=== PATIENT | female | born 1945 ===

== ENCOUNTER 2025-05-03 08:27 | Outpatient (AMB) | payer MEDICARE, SELFPAY ==
--- OUTSIDE RECORDS SUMMARY | 2024-05-11 08:00 | XMS_ITS | Encounter Summary ---
Author Organization [facility] Address [address] [place] [address] Care Team Providers Care Welding Equipment Repairer Supervisor Name Role Phone Brianda Millan MD Primary Care Provider Encounter Details Date Type Department Care Team (Late Contact Info) Description 05/11/2024 8:00 AM EDT Hospital Encounter TH HISTORIC ENCOUNTERS EASTERN CONVERSION ONLY Brianda Millan MD 175 [facility] [address] [place] [address] Social History Tobacco Use Types Packs/Day Years Used Date Smoking Tobacco: Former Cigarettes Q uit: 07/28/1972 Smokeless Tobacco: Never Alcohol Use Standard Drinks/Week Comments Yes 0 (1 standard drink = 0.6 oz pur e alcohol) Interpersonal Safety Answer Date Record ed Physical Abuse Unrecognized value 02/21/2025 Verbal Abuse Unrecognized value 02/21/2025 Comments No Sex and Gender Information Value Date Recorded Sex Assigned at Female 06/23/2024 9:39 AM EST Legal Sex Female 9:52 AM EST Gender Identity Female 06/23/2024 9:39 AM EST Sexual Orientation Straight 02/21/2025 9: 20 AM EDT documented as of this encounter Plan of Treatment Upcoming Encounters Date Type Department Care Team (Late Contact Info) Description 06/16/2025 8:45 AM EST Consult Orthopedic Surgery - [place] [address] [facility] [address] [place] [address] Jake Reis, DPM 175 [facility] [address] [place] [address] 07/29/2025 8:15 AM EST Office Visit Internal Medicine - [place] [address] [place] [phone] Brianda Millan MD [address] [place] [phone] 04/07/2026 3:45 PM EDT Office Visit Pulmonology - [place] [address] [place] [phone] Marek Galdamez MD [address] [place] [phone] documented as of this encounter Goals Goal Patient Goal Type Associated Problems Recent Progress Patient-Stated? Author LTGs General Yes Saira Morris, PT Note: Hand Router Operator Goals increase bilateral hip flexion, extension, and abduction strength to >/= 4/5 for increase in stability and functional mobility - MET for hip flexion strength. NOT MET for hip extension and abduction decrease time taken to complete 5xSTS to </= 12 seconds to show decrease in falls risk and increased functional strength - NOT MET, patient with increased arthritic knee pain during testing at todays session increase score on NORMAN to >/= 30/56 to show decrease in falls risk - MET (39/56) pt will be able to complete 6MWT to show increase in endurance for community mobility - MET (850ft) Pt will be independent with HEP for stretching and strengthening to improve upon gains made in skilled therapy - MET documented as of this encounter Visit Diagnoses Not on filedocumented in this encounter Care Teams Welding Equipment Repairer Supervisor Relationship Specialty Start Date End Date Brianda Millan MD PCP - General Internal Medicine 05/05/13 05/21/24 documented as of this encounter
--- OUTSIDE RECORDS SUMMARY | 2025-05-02 07:41 | XMS_ITS | Encounter Summary ---
Author Organization [facility] Address [id number] [place] [phone] Care Team Providers Care Community Marketing Manager Name Role Phone Brianda Millan MD Primary Care Provider Reason for Referral * Imaging (Routine) - Authorized Specialty Diagnoses / Procedures Referred By Contac t Referred To Contact Radiology Diagnoses Gastroparesis Procedures NM Gastric Emptying Study Jamie Martin MD [address] [address] Phone: tel: fax: [facility] Nuclear Medicine [address] [place] [phone] Phone: tel: Referral ID Status Reason Start Date Expiration Date V isits Requested Visits Authorized [id number] Authorized 02/24/2025 02/24/2026 1 1 Reason for Visit * Imaging (Routine) - Authorized Specialty Diagnoses / Procedures Referred By Contac t Referred To Contact Radiology Diagnoses Gastroparesis Procedures NM Gastric Emptying Study Jamie Martin MD [address] [address] Phone: tel: fax: [facility] Nuclear Medicine [address] [place] [phone] Phone: tel: Referral ID Status Reason Start Date Expiration Date V isits Requested Visits Authorized [id number] Authorized 02/24/2025 02/24/2026 1 1 Encounter Details Date Type Department Care Team (Late st Contact Info) Description 05/02/2025 7:41 AM EDT Hospital Encounter [facility] Nuclear Medicine [address] [place] [phone] Gastroparesis Social History Tobacco Use Types Packs/Day Years [...] 8:45 AM EST Consult Orthopedic Surgery - [place] [id number] [phone] Jake Reis DPM [address] [phone] 07/29/2025 8:15 AM EST Office Visit Internal Medicine - [place] [address] [phone] Brianda Millan MD [address] [phone] 04/07/2026 3:45 PM EDT Office Visit Pulmonology [facility] [address] [phone] Marek Galdamez MD [address] [address] Pending Results Name Type Priority Associated Diagnoses Date /Time NM Gastric Emptying Study Imaging Routine Gastroparesis 05/02/2025 11:15 AM EDT Scheduled Orders Name Type Priority Associated Diagnoses Orde r Schedule NM Gastric Emptying Study Imaging Routine Gastroparesis Once for 1 Occurrences starting 05/02/2025 until 05/02/2025 documented as of this encounter Goals Goal Patient Goal Type Associated Problems Recent Progress Patient-Stated? Author LTGs General Yes Saira Morris, PT Note: [facility] Goals increase bilateral hip flexion, extension, and [...] increased arthritic knee pain during testing at [facility] session increase score on NORMAN to >/= 30/56 to show decrease in falls risk - MET (39/56) pt will be able to complete 6MWT to show increase in endurance for community mobility - MET (850ft) Pt will be independent with HEP for stretching and strengthening to improve upon gains made in skilled therapy - MET documented as of this encounter Visit Diagnoses Diagnosis Gastroparesis documented in this encounter Administered Medications Inactive Administered Medications - up to 3 most recent administrations Medication Order MAR Action Action Date Dose Rate Site TC-99M sulfur colloid radio-isotope injection 0.9 millicurie 0.9 millicurie, subcutaneous, Once in imaging, Starting on Fri05/02/25 at 0830, For 1 dose Given 05/02/2025 8:31 AM EDT 0.9 millicuries Other documented in this encounter Orders Medications Ordered That Shaq ht Not Have Been Administered Count Last Ordered Date First Ordered Date TC-99M sulfur colloid radio- isotope injection 0.9 millicurie 1 05/02/2025 documented in this encounter Additional Health Concerns Assessment Noted Time PHQ-9 Depression Total Score: 2 09/21/19 9:06 AM EST A fall risk assessment has been complete d for the patient 09/21/2024 9:03 AM EST documented as of this encounter Care Teams Community Marketing Manager Relationship Specialty Start Date End Date Brianda Millan MD [address] [place] [address] [address] [place] [phone] PCP - General Internal Medicine 05/22/24 documented as of this encounter
--- NOTE | 2025-05-03 08:46 | A.OFFVIS_ITS ---
Intake Visit Reasons: 6m f/u Accompanied by: Spouse Allergies metoclopramide (From Reglan) Allergy (Unknown, Verified 05/03/25 08:55) Unknown NSAIDS (Non-Steroidal Anti-Inflamma Allergy (Unknown, Verified 05/03/25 08:55) Unknown Medication List - Last Reconciled 05/03/[address], NAIDA duloxetine 60 mg PO DAILY ergocalciferol (vitamin D2) 1,250 mcg PO QWEEK fremanezumab-vfrm (Ajovy) 225 mg subcut QMONTH gabapentin 100 mg PO BEDTIME 30 days losartan 50 mg PO DAILY pantoprazole 40 mg PO BID primidone 12.5 mg PO DAILY promethazine 12.5 mg PO TID sumatriptan succinate mg PO trazodone 50 mg PO BEDTIME HPI Comments Details: She was doing okay. Migraines were still happening about 2-3x/week. Taking Ajovy monthly. Using sumatriptan as needed which helps some as rizatriptan was on backorder. Walking with walker, no recent falls. Tremors stable. Previously was not taking Ajovy as prescribed, but was taking it every other fri. Getting migraines about 2-3/ wk. Her brain MRI was normal for age. She has been under the care of Dr. Paul and Dr. Hernández being treated for migraines with rizatriptan when necessary, mild essential tremor treated with primidone, and chronic pain for which she takes the Loxitane. She's had a balance problem for a few years and has used a walker. She fell down the stairs on 01/29/24 and was in rehabilitation for period of time, but is back home. She goes up and down the stairs holding onto the banister of and uses a cane upstairs and a walker when she goes out. 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 She was on Aimovig injections, but were stopped around 03/2024 as the co-pay went up from $45/month to $170 and cannot afford it. Review of Systems Const Denies chills, Denies daytime sleepiness, Denies difficulty sleeping, Denies fatigue, Denies fever(s), Denies frequent falls, Reports headache(s), Denies increased appetite, Denies poor appetite, Denies snoring, Denies weakness, Denies weight gain and Denies weight loss Eyes Denies loss of vision ENT Denies vertigo, Denies dizziness, Reports headache(s) and Reports neck pain Card Denies chest pain at rest, Denies chest pain with activity, Denies syncope, Denies leg edema, Denies palpitations, Denies dyspnea and Denies dyspnea on exertion Resp Denies cough, Denies dyspnea, Denies dyspnea on exertion and Denies snoring GI Denies abdominal pain, Denies constipation, Denies heartburn, Denies diarrhea and Denies nausea Denies urinary frequency, Denies urinary incontinence and Denies urinary urgency Musc Reports abnormal gait (balance difficulty), Reports back pain, Reports myalgias, Reports arthralgias, Reports neck pain, Denies numbness and Denies tingling Neuro Reports abnormal gait (balance difficulty), Denies vertigo, Denies dizziness, Denies syncope, Denies frequent falls, Reports headache(s), Denies lack of coordination, Denies loss of vision, Denies memory loss, Denies numbness, Denies Other visual disturbances, Denies restless legs, Denies seizure-like activity, Denies tingling, Denies paresthesias, Reports tremor(s) and Denies weakness Psych Denies anxiety, Denies depression, Denies auditory hallucinations, Denies memory loss and Denies visual hallucinations Endo Denies fatigue and Denies palpitations Physical Exam Const Other: General Appearance:? normal, in no acute distress. Heart:? S1, S2 normal, no murmurs. Lungs:? clear anteriorly and posteriorly. Musculoskeletal:? normal. Extremities:? no edema. Psych:? alert, oriented, cognitive function intact, cooperative with exam. Neuro Other: Abnormal Neurological Findings:?Hard of hearing. Walks with walker. Weakness of shoulder abduction, R > L. Mental Status: alert and oriented X 3. Normal attention, orientation, memory, and affect. Cranial Nerves: Pupils are equal, round, and reactive to light. External ocular muscles are intact. Visual mao are full, no ptosis. Face is symmetrical, no facial weakness or droop. Facial sensations are normal. Tongue protrudes in midline. Palate elevates symmetrically. Shoulder shrugging is normal Motor Examination: As above. Sensory Exam: Normal light touch, temperature, pinprick, vibration, and joint- position sensations. Rhomberg sign is absent. Coordination: No ataxia. No titubation. Gait Exam: With walker. Cerebellar Signs: [id number] is okay. Extrapyramidal System: No tremor, rigidity with normal facial expressions. No bradykinesia. No bradyphrenia. Normal arm swing and posture. No propulsion or retropulsion. Speech: Normal. Assessment & Plan Assessment & Plan (1) Migraine: Code(s): G43.909 - Migraine, unspecified, not intractable, without status migrainosus Category: Medical Qualifiers: Intractability: not intractable Migraine type: unspecified Status migrainosus presence: without status migrainosus Qualified Code(s): G43.909 - Migraine, unspecified, not intractable, without status migrainosus Plan: Continue Ajovy Solution Auto-Injector 225mg/1.5mL subcutaneous monthly Continue sumatriptan 50mg 1 tablet as needed for migraine (2) Ataxia: Code(s): R27.0 - Ataxia, unspecified Category: Medical (3) Benign essential tremor: Code(s): G25.0 - Essential tremor Category: Medical Plan: Continue primidone 50mg 1/4 tablet at bedtime. Continue gabapentin 100mg 1 capsule at bedtime. Plan . Medications: New fremanezumab-vfrm (Ajovy) 225 mg (1.5 mL) subcut QMONTH 1 ea 5RF 30 days Coding Level of Care Code Est Pt Level 4 (76247) Diagnoses Migraine without status migrainosus, not intractable, unspecified migraine type G43.909 Intractability: not intractable Migraine type: unspecified Status migrainosus presence: without status migrainosus Ataxia R27.0 Benign essential tremor G25.0
--- OUTSIDE RECORDS SUMMARY | 2025-05-03 08:57 | XMS_ITS | Clinical Summary ---
Author Organization [facility] Address [address] [place] [address] Phone Care Team Providers Care Player Manager Name Role Phone Brianda Millan MD Primary Care Provider [phone] Allergies Active Allergy Reactions Criticality Noted Date Comments Lisinopril 10/29/2024 Metoclopramide Hcl 01/19/2021 Reglan Nsaids (Non-Steroidal Anti-Inflammatory Drug) 03/01/2015 No reaction documented. Medications cyanocobalamin (VITAMIN B-12) 500 mcg tablet TAKE 1 TABLET BY MOUTH EVERY DAY 90 tablet 3 06/28/20 24 Active acetaminophen (TYLENOL) 500 mg tablet Take 1,000 mg by mouth every 6 hours as needed. Active erenumab-aooe (Aimovig Autoinjector) 70 mg/mL injection INJECT 1 MILLILITER SUBCUTANEOUSLY ONCE A MONTH IN THE ABDOMEN, THIGH, OR OUTER AREA OF UPPER ARM 10/26/19 22 Active albuterol 2.5 mg /3 mL (0.083 %) nebulizer solution Take 1 Vial by nebulization every 4 hours as needed for Wheezing. 05/23/20 23 Active albuterol HFA (PROAIR HFA ; PROVENTIL HFA ; VENTOLIN HFA) 90 mcg/actuation inhaler Inhale 2 Puffs into the lungs every 4 hours as needed for Wheezing or Shortness of Breath for up to 30 days. 05/23/20 23 Active ascorbic acid (VITAMIN C) 500 mg chewable tablet Ascorbic Acid (VITAMIN C) 500 MG tablet Take 500 mg by mouth daily. 05/11/20 13 Active calcium carbonate (TUMS) 500 mg (200 mg elemental calcium) chewable tablet Take 1 tablet by mouth 2 times daily. Active CHOLECALCIFEROL, VITAMIN D3, ORAL Take 1,000 Units by mouth daily. Active diclofenac (VOLTAREN) 1 % topical gel Apply 1 Dose topically 2 times daily. 10/24/19 Active doxycycline hyclate (VIBRA-TABS) 100 mg tablet 04/13/20 Active gabapentin (NEURONTIN) 100 mg capsule Take 1 capsule by mouth daily. Active methyl salicylate/mentho l (EXTRA STRENGTH MUSCLE RUB TOP) Menthol-Methyl Salicylate (MUSCLE RUB EX) Apply topically. prn Active multivit-min/iron /folic acid/K (ADULTS MULTIVITAMIN ORAL) Multiple Vitamins-Minerals (MULTIVITAMIN ADULT) Tab Take by mouth. Active omeprazole (PriLOSEC) [address] capsule Active predniSONE (DELTASONE) 20 mg tablet 2 tab for 3 days and then 1 tab daily 04/13/20 Active PRIMIDONE ORAL Take 25 mg by mouth 2 Times Daily. Active rizatriptan (MAXALT) 10 mg tablet TAKE 1 TABLET BY MOUTH ONCE, MAY REPEAT AT 2 HOUR INTERVALS (DO NOT EXCEED 3 TABLETS/24 HOURS) 10/03/19 Active sodium hyaluronate, viscosup, 10 mg/mL(mw 2.4 -3.6 million) syringe intra-articular injection Inject 20 mg into the articular space Once. 04/23/20 Active fluticasone-salme terol (Wixela Inhub) 250-50 mcg/dose diskus inhaler Inhale 1 puff by mouth 2 (two) times a day. Rinse mouth with water after use to reduce aftertaste and incidence of candidiasis. Do not swallow. 1 each 09/17/19 25 026 Active Additional Information Patient not taking.Reported on 04/04/2025 traZODone (DESYREL) 50 mg tablet TAKE 1 TABLET BY MOUTH EVERYDAY AT BEDTIME 90 tablet 2 10/05/19 25 Active alendronate (FOSAMAX) 70 mg tablet TAKE 1 TABLET BY MOUTH ONE TIME PER WEEK 12 tablet 1 12/22/19 25 Active promethazine (PHENERGAN) 12.5 mg tabletIndications :Nausea TAKE 1 TABLET BY MOUTH THREE TIMES A DAY 270 tablet 1 01/11/20 25 Active pantoprazole (PROTONIX) 40 mg EC tabletIndications :Gastroesophageal reflux disease without esophagitis TAKE 1 TABLET BY MOUTH TWICE A DAY 180 tablet 1 01/25/20 25 Active losartan (COZAAR) 50 mg tablet Take 1 tablet (50 mg total) by mouth 1 (one) time each day. 90 tablet 2 01/25/20 25 Active polyethylene glycol (Golytely) 236-22.74-6.74 -5.86 gram solution Take 4L by mouth once for one dose. May substitue any PEG. Starting at 2PM the day before your procedure drink 1 8oz glasses at your own pace until you complete half of the gallon. Finish 2nd half of the gallon at 8PM. 4000 mL 02/08/20 25 Active bisacodyL (DULCOLAX) 5 mg EC tablet Take 2 tablets by mouth right before beginning bowel prep. See instructions provided by the office 2 tablet 02/08/20 25 Active ergocalciferol (VITAMIN D-2) 1,250 mcg (50,000 unit) capsule Take 1 capsule (50,000 Units total) by mouth 1 (one) time per week. 12 capsule 1 02/22/20 25 Active DULoxetine (CYMBALTA) [address] capsuleIndication s:Unspecified asthma, uncomplicated TAKE 1 CAPSULE BY MOUTH EVERY DAY 90 capsule 1 03/14/20 25 Active Active Problems Problem Noted Date Diagnosed Date Gastritis 01/05/2025 Hypertension 01/05/2025 Arthritis of right glenohumeral joint 01/19/2021 PLMD (periodic limb movement disorder) Hypertension 01/12/2019 Lipoma of back 12/18/2018 Adenomatous polyp of transverse colon 04/14/2018 Osteoporosis 02/04/2018 Vitamin D deficiency 01/25/2018 Onychomycosis of toenail 12/23/2017 Hiatal hernia 08/21/2017 Assessment & Plan (10/29/2024 12:46 PM EDT): Reassessing with upper GI Patient already status post paraesophageal hernia repair Discussed potential need for repeat surgery Orders: Ambulatory referral to Gastroenterology XR UGI w Air Contrast; Future Vitamin B12 and folate; Future Lipase; Future Amylase; Future Ambulatory referral to Nutrition Services; Future Assessment & Plan (09/21/2024 11:05 AM EST): Orders: Ambulatory referral to Gastroenterology; Future Comprehensive metabolic panel; Future CBC and differential; Future Thyroid stimulating hormone with reflex to free t4 and free t3; Future Paroxysmal supraventricular tachycardia (CMS/HCC V24) 08/21/2017 Ventral hernia 08/21/2017 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 Bialey Insomnia 04/30/2017 Tubular adenoma of colon 04/30/2017 Overview (07/01/2024): 2016 s/p hemicolectomy Asthma 03/06/2017 Obstructive sleep apnea 03/06/2017 Overview (07/01/2024): [facility] Polysomnogram: Date 10/09/2020; Wt 161#; BMI 33; SE 48%; SM 73%; REM 6%; RDI 7 (AHI 7), REM (RDI 4 - AHI 4), Central apneas 0; Obstructive apneas 0; Mixed apneas 0; hypopneas 28; RERAs 0; average oxygen saturation 90% (lowest 80% - with saturations <88% for 5% or more of study); PLMs 56. - Obstructive Sleep Apnea - mild overall; all hypopneas; with sleep related hypoventilation by 2020 polysomnogram. Anemia 01/29/2017 Overview (07/01/2024): Comments: EGD and colonoscopy did not show a source of bleeding. On Iron replacement. Capsule endoscopy still an option Assessment & Plan (09/21/2024 11:05 AM EST): Orders: Comprehensive metabolic panel; Future CBC and differential; Future Thyroid stimulating hormone with reflex to free t4 and free t3; Future GERD (gastroesophageal reflux disease) 7 Assessment & Plan (10/29/2024 12:46 PM EDT): Stable continue pantoprazole 40 mg twice daily Nummular eczema 10/29/2016 Urinary incontinence 07/16/2016 DJD (degenerative joint disease) of knee 016 Overview (07/01/2024): And shoulder Ataxia 10/15/2013 Vitamin B12 deficiency 08/20/2013 Overview (07/01/2024): Comments: Rx started 28 january 2012 Encounters Date Type Department Care Team Description 05/02/2025 7:41 AM EDT Hospital Encounter [facility] Nuclear Medicine [address] [place] [phone] Gastroparesis 04/25/2025 Telephone Gastroenterology - [address] [facility] [address] [facility] [address] [place] [address] Alex Rashid PA 04/04/2025 3:15 PM EDT Office Visit Pulmonology - [place] 175 [facility] [address] [place] [phone] Marek Galdamez MD Chronic obstructive pulmonary disease, unspecified COPD type (CMS/HCC V24, CMS/HCC V28) (Primary Dx); KRAIG (obstructive sleep apnea) 03/29/2025 Telephone Internal Medicine [facility] [address] [phone] Brianda Millan MD 03/23/2025 Telephone Internal Medicine [facility] 175 [facility] [address] [place] [address] Brianda Millan MD 03/16/2025 Telephone Internal Medicine [facility] 175 [facility] [address] [place] [address] Brianda Millan MD 03/09/2025 Telephone Internal Medicine [facility] [address] [phone] Brianda Millan MD 02/25/2025 9:00 AM EDT Office Visit Internal Medicine [facility] 175 [facility] [address] [place] [phone] Brianda Millan MD Vitamin B12 deficiency (Primary Dx); Primary hypertension; Anemia, unspecified type; Mild intermittent asthma, unspecified whether complicated; Osteoporosis, unspecified osteoporosis type, unspecified pathological fracture presence 02/23/2025 Telephone Gastroenterology - [address] [facility] [address] [facility] [address] [place] [phone] Yamel Carrero MA 02/21/2025 10:25 AM EDT Anesthesia Event [facility] Endoscopy [address] [place] [phone] Teddy La DO 02/21/2025 9:25 AM EDT - 02/21/2025 11:59 PM EDT Hospital Encounter [facility] Endoscopy [address] [place] [phone] Jamie Martin MD Walsh, Michael, DO Sobo, Kathleen, CRNA Weight loss; Nausea; Abdominal pain Discharge Disposition: Home or Self Care from Last 3 Months Immunizations Immunization Administration Dates Next Due Influenza trivalent, 0.5mL ( Fluad) 65yo and older 09/21/2024,05/23/2023,06/07/2022,06/15,06/13/2020,06/11/2019 Influenza trivalent, 0.5mL, preservative free (Fluarix; FluLaval; Fluzone) ages 6mo and older (Afluria) 3 years and older 04/30/2017,06/12/2016,07/25/2014,08/20 Shijiebang SARS-CoV-2 COVID-19, mRNA, LNP-S, preservative free 11/03/2020,10/13/2020 Pneumococcal conjugate 13 va lent (Prevnar 13, PCV13) 2mo and older 04/30/2017 Pneumococcal polysaccharide 23 valent (Pneumovax 23) 2yo and older 06/07/2022 Surgical History Surgery Date Site/Laterality Comments OTHER SURGICAL HISTORY PROCEDURE: HISTORY OTHER; COMMENT: esophogastrostomy distal /3, thoracotomy COLONOSCOPY 7 PROCEDURE: HISTORICAL COLONOSCOPY; COMMENT: with polypecotmy & tatoo; tubular adenoma, diverticulosis and internal hermorrhoids OTHER SURGICAL HISTORY 7 PROCEDURE: SC COLECTOMY PARTIAL W/ANASTOMOSIS; COMMENT: converted to open w/anastomosis & mobilization of splenic flexure UPPER GASTROINTESTINAL ENDOSCOPY 7 PROCEDURE: UPPER GI ENDOSCOPY/EXAM; COMMENT: esophagogastroduodenscopy (with colonoscopy); negative exam HERNIA REPAIR 6 PROCEDURE: HISTORICAL HERNIA REPAIR/UMB; COMMENT: incisional w/Phasix mesh; adhesiolysis OTHER SURGICAL HISTORY 2013 PROCEDURE: HISTORY OTHER; COMMENT: robotic converted to open repair paraesophageal hernia LIPOMA RESECTION PROCEDURE: SKIN TISSUE EXCISION(LIPOMA); COMMENT: back TUBAL LIGATION 1974 PROCEDURE: HISTORICAL TUBAL LIGATION ABDOMINAL SURGERY 2012 PROCEDURE: HISTORICAL ABDOMINAL SURGERY; COMMENT: strangulated stomach COLONOSCOPY 02/25/2023 - 03/27/2023 20 mm lipoma in proximal ascending colon, internal hemorrhoids, sigmoid tics healthy appearing anastomosis in the sigmoid colon ESOPHAGOGASTRODUODENOSCOPY 02/25/2023 - 03/27/2023 medium sized hiatal hernia gastric mucosa with minimal chronic gastritis negative for H. pylori Medical History Medical History Date Comments Anemia 01/29/2017 DX:Anemia; COMME NT: Comments: EGD and colonoscopy did not show a source of bleeding. On Iron replacement. 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 Bailey Hiatal hernia 08/21/2017 DX:Hiatal hernia History of GI bleed 08/21/2017 DX:History o f GI bleed History of herpes zoster 08/21/2017 DX:Hist ory of herpes zoster History of pulmonary embolus (PE) 03/04/2016 DX:History of pulmonary embolus (PE); COMMENT: and DVT Insomnia 04/30/2017 DX:Insomnia Nummular eczema 10/29/2016 DX:Nummular ecze ma Obstructive sleep apnea syndrome 03/06/2017 DX:Obstructive sleep apnea syndrome Tubular adenoma of colon 04/30/2017 DX:Tubu lar adenoma of colon; COMMENT: 2016 s/p hemicolectomy Urinary incontinence 07/16/2016 DX:Urinary incontinence Ventral hernia 08/21/2017 DX:Ventral herni a Vitamin B 12 deficiency 08/20/2013 DX:Vitam in B 12 deficiency; COMMENT: Comments: Rx started 28 january 2012 DJD (degenerative joint dise ase) of knee 03/13/2016 DX:DJD (degenerative joint d isease) of knee; COMMENT: And shoulder GERD (gastroesophageal reflu x disease) 10/29/2016 DX:GERD (gastroesophageal re flux disease) Family History Medical History Relation Name Comments Other: Other, cerebral palsy Brother Emphysema Father Stomach cancer Mother widespread me tastasis Stomach cancer Uncle maternal (great uncle) Relation Name Status Comments Brother Father Mother Uncle maternal Alive Social History Tobacco Use Types Packs/Day Years Used Date Smoking Tobacco: Former Cigarettes Q uit: 07/28/1972 Smokeless Tobacco: Never Tobacco Cessation:Counseling Given: Not Answered Alcohol Use Standard Drinks/Week Comments Yes 0 [...] Orientation Straight 02/21/2025 9: 20 AM EDT Obstetrics History Para Term AB IAB SAB Ectopic Multiple Livin g Live Births 3 Last Filed Vital Signs Vital Sign Reading Time Taken Comments Blood Pressure 120/58 04/04/2025 3:13 PM EDT Pulse 60 04/04/2025 3:13 PM EDT Temperature 36.6 C (97.8 F) 04/04/2025 3:13 PM EDT Respiratory Rate 16 04/04/2025 3:13 PM EDT Oxygen Saturation 98% 04/04/2025 3:13 PM EDT Inhaled Oxygen Concentration - - Weight 44.6 kg (98 lb 6.4 oz) 02/25/2025 9:07 AM EDT Height 149.9 cm (4' 11 ) 02/25/2025 9:07 AM EDT Body Mass Index 19.87 02/25/2025 9:07 AM EDT Plan of Treatment Upcoming Encounters Date Type Department Care Team (Late st Contact Info) Description 06/16/2025 8:45 AM EST Consult Orthopedic Surgery - [place] [address] [facility] [address] [place] [phone] Jake Reis DPM [address] [phone] 07/29/2025 8:15 AM EST Office Visit Internal Medicine - [place] [facility] [address] [place] [phone] Brianda Millan MD [address] [phone] 04/07/2026 3:45 PM EDT Office Visit Pulmonology - [place] [facility] [address] [place] [phone] Marek Galdamez MD [address] [address] Health Maintenance Due Date Last Done Comments DTaP,Tdap,and Td Vaccines (1 - Tdap) 1966 Zoster Vaccines (1 of 2) 1997 RSV Immunization Adult Patients (1 - 1-dose 75+ series) 2022 Hepatitis C Screening 07/06/2022 Social Influencers of Health Screening 07/06/2022 COVID-19 Vaccine ( season) 2025 09/01/2021, 11/03/2020, 10/13/2020 Influenza Vaccine (#1) 2025 , 03/28/2024, 05/23/2023, Additional history exists Falls Risk Assessment 09/21/2025 09/21/2024, 025 Medicare Annual Wellness Visit 09/21/2025 09/21/2024 Hypertension/CHF/CAD Annual BMP Blood Test 09/24/2025 09/24/2024, 04/13/2024, 04/13/2024 Cholesterol Screening (Lipid Panel) 05/27/2028 05/27/2023 Osteoporosis Screening (Bone Density Screening) 04/27/2031 04/27/2021, 01/19/2018 Pneumococcal Vaccine: 50+ Years Completed 06/07/2022, 04/30/2017 Depression Screening Completed 09/21/2024 Colorectal Cancer Screening: Colonoscopy Discontinued 02/21/2025 HIB Vaccines Aged Out No longer eligi ble based on patient's age to complete this topic HPV Vaccines Aged Out No longer eligi ble based on patient's age to complete this topic Hepatitis A Vaccines Aged Out No long er eligible based on patient's age to complete this topic Hepatitis B Vaccines Aged Out No long er eligible based on patient's age to complete this topic IPV Vaccines Aged Out No longer eligi ble based on patient's age to complete this topic MMR Vaccines Aged Out No longer eligi ble based on patient's age to complete this topic Meningococcal ACWY Vaccine Aged Out N o longer eligible based on patient's age to complete this topic Meningococcal B Vaccine Aged Out No l onger eligible based on patient's age to complete this topic RSV Immunization Patients Under 20 months Aged Out No longer eligible based on patient's age to complete this topic Varicella Vaccines Aged Out No longer eligible based on patient's age to complete this topic Goals Goal Patient Goal Type Associated Problems Recent Progress Patient-Stated? 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, extension, and [...] gains made in skilled therapy - MET Procedures Procedure Name Priority Date/Time Associated Diagnosis Comments COLONOSCOPY Routine 02/21/2025 10:49 AM EDT Weight loss Nausea Abdominal pain EGD Routine 02/21/2025 10:49 AM EDT Weight loss Nausea Abdominal pain TISSUE EXAM Routine 02/21/2025 10:31 AM EDT Weight loss Nausea Abdominal pain COMPREHENSIVE METABOLIC PANEL Routine 09/24/2024 8:58 AM EST Chronic right shoulder pain Chronic pain of both knees Gastric atony Hiatal hernia Anemia, unspecified type LIPID PANEL Routine 05/27/2023 DXA BONE DENSITY STUDY 1+ SITS AXIAL SKEL Routine 04/27/2021 10:20 AM EDT Wedge compression fracture of unspecified lumbar vertebra, sequela from Last 3 Months or Most Recently Relevant to Health Maintenance Results * COLONOSCOPY Anesthesia - MAC; [facility] ENDOSCOPY (02/21/2025 10:49 AM EDT) Anatomical Region Laterality Modality Other 02/21/2025 10:2 3 AM EDT Impressions 02/21/2025 10:53 AM EDT - Patent end-to-side colo-colonic anastomosis, characterized by healthy appearing mucosa. - Medium-sized lipoma in the proximal ascending colon. - Diverticulosis in the sigmoid colon. - Non-bleeding internal hemorrhoids. - The examination was otherwise normal on direct and retroflexion views. - No specimens collected. Recommendation: - Discharge patient to home. - Resume previous diet. - Continue present medications. - Await pathology results. - Return to GI clinic as previously scheduled. Narrative 02/21/2025 10:53 AM EDT [facility] GI Patient Name: Shannon Wylie Procedure Date: 02/21/2025 10:23 AM Date of : 1945 Age: 79 Room: ROOM 14 Gender: Female Note Status: Finalized Attending MD: Jamie Martin MD, Procedure Date No Time: 02/21/2025 Procedure: Colonoscopy Indications: High risk colon cancer surveillance: Personal history of colonic polyps Providers: Jamie Martin MD Referring MD: Jamie Martin MD Medicines: Monitored Anesthesia Care Complications: No immediate complications. Estimated Blood Loss: Estimated blood loss: none. Procedure: Pre-Anesthesia Assessment: - ASA Grade Assessment: IV - A patient with severe systemic disease that is a constant threat to life. - After reviewing the risks and benefits, the patient was deemed in satisfactory condition to undergo the procedure. After I obtained informed consent, the scope was passed under direct vision. Throughout the procedure, the patient's blood pressure, pulse, and oxygen saturations were monitored continuously.The Colonoscope was introduced through the anus and advanced to the cecum, identified by appendiceal orifice and ileocecal valve. The colonoscopy was performed without difficulty. The patient tolerated the procedure well. The quality of the bowel preparation was adequate. Findings: There was evidence of a prior end-to-side colo-colonic anastomosis in the sigmoid colon. This was patent and was characterized by healthy appearing mucosa. There was a medium-sized lipoma, 13 mm in diameter, in the proximal ascending colon. Scattered small and large-mouthed diverticula were found in the sigmoid colon. Non-bleeding internal hemorrhoids were found during retroflexion. The hemorrhoids were small. The exam was otherwise without abnormality on direct and retroflexion views. Procedure Code(s): --- Professional --- G0105, Colorectal cancer screening; colonoscopy on individual at high risk Diagnosis Code(s): --- Professional --- Z86.010, Personal history of colonic polyps CPT copyright 2020 [employer]. All rights reserved. The codes documented in this report are preliminary and upon transplanter review may be revised to meet current compliance requirements. Jamie Martin MD 02/21/2025 10:53:44 AM This report has been signed electronically.Jamie Martin MD Number of Addenda: 0 Note Initiated On: 02/21/2025 10:23 AM Scope In: Scope Out: Endoscopy Department at [facility] - [address] [place] [phone] Procedure Note Jamie Martin MD - 02/21/2025 [facility] GI Patient Name: Shannon Wylie Procedure Date: 02/21/2025 10:23 AM Date of : 1945 Age: 79 Room: ROOM 14 Gender: Female Note Status: Finalized Attending MD: Jamie Martin MD, Procedure Date No Time: 02/21/2025 Procedure: Colonoscopy Indications: High risk colon cancer surveillance: Personalhistory of colonic polyps Providers: Jamie Martin MD Referring MD: Jamie Martin MD Medicines: Monitored Anesthesia Care Complications: No immediate complications. Estimated Blood Loss: Estimated blood loss: none. Procedure: Pre-Anesthesia Assessment: - ASA Grade Assessment: IV - A patient with severe systemic disease that is a constant threat tolife. - After reviewing the risks and benefits, thepatient was deemed in satisfactory condition to undergo the procedure. After I obtained informed consent, the scope was passed under direct vision. Throughout theprocedure, the patient's blood pressure, pulse, and oxygen saturations were monitored continuously.The Colonoscope was introduced through the anus and advanced to the cecum, identified by appendiceal orifice and ileocecal valve. The colonoscopy was performed without difficulty. The patient tolerated the procedure well. The quality of the bowel preparation was adequate. Findings: There was evidence of a prior bbm-te-ljyeppcw-colonic anastomosis in the sigmoid colon. This was patentand was characterized by healthy appearing mucosa. There was a medium-sized lipoma, 13 mm in diameter,in the proximal ascending colon. Scattered small and large-mouthed diverticula were found in the sigmoid colon. Non-bleeding internal hemorrhoids were found during retroflexion. The hemorrhoids were small. The exam was otherwise without abnormality ondirect and retroflexion views. Procedure Code(s): --- Professional --- G0105, Colorectal cancer screening; colonoscopy on individual at high risk Diagnosis Code(s): --- Professional --- Z86.010, Personal history of colonic polyps CPT copyright 2020 [employer]. All rights reserved. The codes documented in this report are preliminary and upon transplanter reviewmay be revised to meet current compliance requirements. Jamie Martin MD 02/21/2025 10:53:44 AM This report has been signed electronically.Jamie Martin MD Number of Addenda: 0 Note Initiated On: 02/21/2025 10:23 AM Scope In: Scope Out: Endoscopy Department at [facility] - [address] [place] [phone] IMPRESSION: - Patent end-to-side colo-colonic anastomosis, characterized by healthy appearing mucosa. - Medium-sized lipoma in the proximal ascendingcolon. - Diverticulosis in the sigmoid colon. - Non-bleeding internal hemorrhoids. - The examination was otherwise normal on directand retroflexion views. - No specimens collected. Recommendation: - Discharge patient to home. - Resume previous diet. - Continue present medications. - Await pathology results. - Return to GI clinic as previously scheduled. Jamie Martin MD GI~PROCEDURE ORDERABLES Final Result * EGD Anesthesia - MAC; [facility] ENDOSCOPY (02/21/2025 10:49 AM EDT) Anatomical Region Laterality Modality Other 02/21/2025 10:1 7 AM EDT Impressions 02/21/2025 10:52 AM EDT - Z-line variable, 30 cm from the incisors. - Congested, erythematous, friable (with contact bleeding), inflamed, ulcerated mucosa in the esophagus. Biopsied. - Congested, erythematous and friable (with contact bleeding) mucosa in the stomach. - Normal examined duodenum. Biopsied. - Several biopsies were obtained in the gastric antrum. Recommendation: - Perform a colonoscopy today. - Await pathology results. Narrative 02/21/2025 10:52 AM EDT [facility] GI Patient Name: Shannon Wylie Procedure Date: 02/21/2025 10:17 AM Date of : 1945 Age: 79 Room: ROOM 14 Gender: Female Note Status: Finalized Attending MD: Jamie Martin MD, Procedure Date No Time: 02/21/2025 Procedure: Upper GI endoscopy Indications: Epigastric abdominal pain, Gastro-esophageal reflux disease, Failure to respond to medical treatment, Weight loss Providers: Jamie Martin MD Referring MD: Jamie Martin MD Medicines: Monitored Anesthesia Care Complications: No immediate complications. Estimated Blood Loss: Estimated blood loss was minimal. Procedure: Pre-Anesthesia Assessment: - ASA Grade Assessment: IV - A patient with severe systemic disease that is a constant threat to life. - After reviewing the risks and benefits, the patient was deemed in satisfactory condition to undergo the procedure. After obtaining informed consent, the endoscope was passed under direct vision. Throughout the procedure, the patient's blood pressure, pulse, and oxygen saturations were monitored continuously.The Endoscope was introduced through the mouth, and advanced to the third part of duodenum. The upper GI endoscopy was accomplished without difficulty. The patient tolerated the procedure well. Findings: The Z-line was variable and was found 30 cm from the incisors. Segmental moderate mucosal changes characterized by congestion, erythema, friability (with contact bleeding), inflammation and ulceration were found in the distal esophagus. Biopsies were taken with a cold forceps for histology. Estimated blood loss was minimal. The exam of the esophagus was otherwise normal. Diffuse mild mucosal changes characterized by congestion, erythema and friability (with contact bleeding) were found in the entire examined stomach. Several biopsies were obtained in the gastric antrum with cold forceps for histology. Estimated blood loss was minimal. The examined duodenum was normal. Biopsies were taken with a cold forceps for histology. Estimated blood loss was minimal. Procedure Code(s): --- Professional --- 77765, Esophagogastroduodenoscopy, flexible, transoral; with biopsy, single or multiple Diagnosis Code(s): --- Professional --- R10.13, Epigastric pain K21.9, Gastro-esophageal reflux disease without esophagitis R63.4, Abnormal weight loss CPT copyright 2020 [employer]. All rights reserved. The codes documented in this report are preliminary and upon transplanter review may be revised to meet current compliance requirements. Jamie Martin MD 02/21/2025 10:51:44 AM This report has been signed electronically.Jamie Martin MD Number of Addenda: 0 Note Initiated On: 02/21/2025 10:17 AM Scope In: Scope Out: Endoscopy Department at [facility] - [address] [place] [id number] Procedure Note Jamie Martin MD - 02/21/2025 [facility] GI Patient Name: Shannon Wylie Procedure Date: 02/21/2025 10:17 AM Date of : 1945 Age: 79 Room: ROOM 14 Gender: Female Note Status: Finalized Attending MD: Jamie Martin MD, Procedure Date No Time: 02/21/2025 Procedure: Upper GI endoscopy Indications: Epigastric abdominal pain, Gastro-esophageal reflux disease, Failure to respond to medical treatment, Weight loss Providers: Jamie Martin MD Referring MD: Jamie Martin MD Medicines: Monitored Anesthesia Care Complications: No immediate complications. Estimated Blood Loss: Estimated blood loss was minimal. Procedure: Pre-Anesthesia Assessment: - ASA Grade Assessment: IV - A patient with severe systemic disease that is a constant threat tolife. - After reviewing the risks and benefits, thepatient was deemed in satisfactory condition to undergo the procedure. After obtaining informed consent, the endoscope was passed under direct vision. Throughout theprocedure, the patient's blood pressure, pulse, and oxygen saturations were monitored continuously.TheEndoscope was introduced through the mouth, and advanced tothe third part of duodenum. The upper GI endoscopy was accomplished without difficulty. The patienttolerated the procedure well. Findings: The Z-line was variable and was found 30 cm fromthe incisors. Segmental moderate mucosal changes characterized by congestion, erythema, friability (with contact bleeding), inflammation and ulceration were foundin the distal esophagus. Biopsies were taken with acold forceps for histology. Estimated blood loss was minimal. The exam of the esophagus was otherwise normal. Diffuse mild mucosal changes characterized by congestion, erythema and friability (with contact bleeding) were found in the entire examinedstomach. Several biopsies were obtained in the gastricantrum with cold forceps for histology. Estimated bloodloss was minimal. The examined duodenum was normal. Biopsies weretaken with a cold forceps for histology. Estimated blood loss was minimal. Procedure Code(s): --- Professional --- 87702, Esophagogastroduodenoscopy, flexible, transoral; with biopsy, single or multiple Diagnosis Code(s): --- Professional --- R10.13, Epigastric pain K21.9, Gastro-esophageal reflux disease without esophagitis R63.4, Abnormal weight loss CPT copyright 2020 [employer]. All rights reserved. The codes documented in this report are preliminary and upon transplanter reviewmay be revised to meet current compliance requirements. Jamie Martin MD 02/21/2025 10:51:44 AM This report has been signed electronically.Jamie Martin MD Number of Addenda: 0 Note Initiated On: 02/21/2025 10:17 AM Scope In: Scope Out: Endoscopy Department at [facility] - [address] [place] [id number] IMPRESSION: - Z-line variable, 30 cm from the incisors. - Congested, erythematous, friable (with contact bleeding), inflamed, ulcerated mucosa in the esophagus. Biopsied. - Congested, erythematous and friable (with contact bleeding) mucosa in the stomach. - Normal examined duodenum. Biopsied. - Several biopsies were obtained in the gastricantrum. Recommendation: - Perform a colonoscopy today. - Await pathology results. us Jamie Martin MD GI~PROCEDURE ORDERABLES Final Result * Tissue exam (02/21/2025 10:31 AM EDT) Addendum Part B: Immunohistochemistry: Helicobacter pylori: negative. 7:46 AM EDT [facility] Addendum electronically signed by Shaniqua Ponce MD on 02/23/2025 at 7:46 AM Final Diagnosis A. Small Intestine, Duodenum, biopsies: - Duodenal mucosa with preserved villi and no specific pathologic changes. - Negative for increased intraepithelial lymphocytes. B. Gastric, Antrum, biopsies: - Gastric antral mucosa with mild chronic gastritis and focal intestinal metaplasia. - Gastric oxyntic mucosa with minimal chronic gastritis. - Negative for dysplasia. Note: Immunostain for Helicobacter pylori will be performed to rule out Helicobacter pylori infection in the setting of chronic gastritis as Helicobacter pylori organisms are not morphologically apparent on H&E stained slide. C. Esophagus, biopsies distal: - Focal Bains's mucosa with erosion and acute inflammation. - Negative for dysplasia. 7:46 AM EDT [facility] Gross Description A. Small Intestine, Duodenum, biopsies: Labeled biopsy duodenum . Received in formalin are four soft, hoover-red tissue ranging from 0.5 cm to 0.3 cm in greatest diameter, which are wrapped in paper and submitted in toto in one cassette, four pieces, multiple levels. B. Gastric, Antrum, biopsies: Labeled biopsies gastric ant . Received in formalin are four soft, pink-hoover to red tissue fragments ranging from 0.25 cm to 0.4 cm in greatest diameter, which are wrapped in paper and submitted in toto in one cassette, four pieces, multiple levels. C. Esophagus, biopsies distal: Labeled biopsies esophagus . Received in formalin are six soft to friable, [id number]-[id number] tissue fragments ranging from 0.2 cm to 0.4 cm in greatest diameter, which are wrapped in paper and submitted in toto in one cassette, six pieces, multiple levels. TS 5 7:46 AM EDT [facility] Disclaimer NOTE: The immunohistochemical tests and in situ hybridization tests were developed and their performance characteristics were determined by [facility]. They have not been cleared or approved by the U.S. Food and Drug Administration. The FDA has determined that such clearance or approval is not necessary. These tests are used for clinical purposes. They should not be regarded as investigational or for research. This laboratory is certified under the Clinical Laboratory Improvement Amendments of 1988 (CLIA) as qualified to perform high complexity clinical laboratory testing. (controls appropriate) Unless otherwise specified, all tissue is 10% NB formalin fixed and paraffin embedded. 7:46 AM EDT [facility] Tissue Duodenal structure / Unknown 02/21/2025 10:31 AM EDT 02/21/2025 11:08 AM EDT Tissue specimen (specimen) Pyloric antrum structure / Unknown 02/21/2025 10:32 AM EDT 02/21/2025 11:08 AM EDT Tissue specimen (specimen) Esophageal structure / Unknown 02/21/2025 10:34 AM EDT 02/21/2025 11:08 AM EDT us Jamie Martin MD LAB PATHOLOGY ORDERABLES Edit ed Result - Final [facility] [address] [place] [address], [place] [phone] * Comprehensive metabolic panel (09/24/2024 8:58 AM EST) [facility] Signature Sodium 141 133 - 145 mmol/L LAB CHEMISTRY METHOD 09/24/2024 9:52 AM [facility] Potassium 4.6 3.5 - 5.5 mmol/L LAB CHEMISTRY METHOD 09/24/2024 9:52 AM [facility] Chloride 107 96 - 110 mmol/L LAB CHEMISTRY METHOD 09/24/2024 9:52 AM [facility] CO2 31 21 - 32 mmol/L LAB CHEMISTRY METHOD 09/24/2024 9:52 AM [facility] Anion Gap 3 3 - 11 LAB CHEMISTRY METHOD 09/24/2024 9:52 AM [facility] Glucose 91 70 - 100 mg/dL LAB CHEMISTRY METHOD 09/24/2024 9:52 AM [facility] BUN 9 5 - 25 mg/dL LAB CHEMISTRY METHOD 09/24/2024 9:52 AM [facility] Creatinine 0.66 0.50 - 1.10 mg/dL LAB CHEMISTRY METHOD 09/24/2024 9:52 AM [facility] eGFR 90 >=60 mL/min/1. 73m2 LAB CHEMISTRY METHOD 09/24/2024 9:52 AM [facility] Comment:Calculation based on the Chronic Kidney Disease Epidemiology Collaboration (CKD-EPI) equation refit without adjustment for race. BUN/Creatinine Ratio 13.6 LAB CHEMISTRY METHOD 09/24/2024 9:52 AM [facility] Calcium 9.6 8.5 - 10.5 mg/dL LAB CHEMISTRY METHOD 09/24/2024 9:52 AM [facility] AST (SGOT) 22 10 - 42 unit/L LAB CHEMISTRY METHOD 09/24/2024 9:52 AM [facility] ALT (SGPT) 18 10 - 60 unit/L LAB CHEMISTRY METHOD 09/24/2024 9:52 AM EST [facility] Alkaline Phosphatase 61 42 - 121 unit/L LAB CHEMISTRY METHOD 09/24/2024 9:52 AM EST [facility] Total Protein 6.4 6.0 - 8.0 g/dL LAB CHEMISTRY METHOD 09/24/2024 9:52 AM [facility] Albumin 3.3 3.2 - 5.0 g/dL LAB CHEMISTRY METHOD 09/24/2024 9:52 AM [facility] Total Bilirubin 0.4 0.0 - 1.4 mg/dL LAB CHEMISTRY METHOD 09/24/2024 9:52 AM [facility] Blood Venous blood specimen / Unknown Venipuncture / Unknown 09/24/2024 8:58 AM EST 09/24/2024 9:07 AM EST Brianda Millan MD LAB BLOOD ORDERABLES Final Res ult [facility] [address] [place] [address], [place] [phone] * (ABNORMAL) Lipid panel (05/27/2023) LDL/HDL Ratio 2 0 - 4 Triglycerides 120 0 - 150 mg/dL Cholesterol 225(A) 0 - 200 mg/dL HDL 96 >=40 mg/dL LDL Cholesterol 105(A) 0 - 100 mg/dL Blood Venous blood specimen / Unknown Historical Provider LAB BLOOD ORDERABLES Nona l Result * DXA BONE DENSITY STUDY 1+ SITS AXIAL SKEL (04/27/2021 10:20 AM EDT) Anatomical Region Laterality Modality Bone Densitometr y 12/22/2020 3:01 PM EDT Narrative 04/27/2021 7:33 PM EDT BONE DENSITY SCAN (DEXA): FINDINGS: Lumbar Spine L2-L4 T-score is -2.1. (SD relative to 20-29 y/o adult) Z-score is 0.3. (SD relative to age matched peers) This is considered osteopenia by WHO criteria. Left Hip T-score is -2.8. Z-score is -0.8. This is considered osteoporosis by WHO criteria. Right forearm T-score is -4.1. Z-score is -1.6. This is considered osteoporosis by WHO criteria. Comparison exam(s): None. IMPRESSION: IMPRESSION: Osteoporosis by WHO criteria. The [facility] Department of Internal Medicine recommends using National Osteoporosis Foundation (NOF) guidelines in treatment decisions related to osteoporosis. NOF guidelines suggest considering treatment for postmenopausal women and men aged 50 or older presenting with the following: History of hip or vertebral fracture. T-score = -2.5 (DXA) at the femoral neck, total hip, or spine, after appropriate evaluation to exclude secondary causes. Low bone mass (T-score between -1.0 and -2.5 at the femoral neck or spine) AND a 10-year probability of a hip fracture = 3% OR a 10-year probability of a major osteoporosis-related fracture = 20% based on the [place]-adapted WHO algorithm Please note that all treatment decisions require clinical judgment and consideration of individual patient factors, including patient preferences, co-morbidities, previous drug use, risk factors not captured in the FRAX model (e.g., frailty, falls, vitamin D deficiency, increased bone turnover, interval significant decline in bone density) and possible under- or over-estimation of fracture risk by FRAX. Optional alternative screening schedule based on joanna Coughlin., [facility] August 15, 2011 for patients with osteopenia (based on hip BMD T-score) is as follows: * advanced osteopenia (T scores -2.00 to -2.49), BMD testing every year * moderate osteopenia (T scores -1.50 to -1.99), BMD testing every 5 years mild osteopenia or normal BMD (T scores -1.50 and higher), BMD testing every 15 years Procedure Note Alethea Bruno MD - 07/16/2022 BONE DENSITY SCAN (DEXA): FINDINGS: Lumbar Spine L2-L4 T-score is -2.1. (SD relative to 20-29 y/o adult) Z-score is 0.3. (SD relative to age matched peers) This is considered osteopenia by WHO criteria. Left Hip T-score is -2.8. Z-score is -0.8. This is considered osteoporosis by WHO criteria. Right forearm T-score is -4.1. Z-score is -1.6. This is considered osteoporosis by WHO criteria. Comparison exam(s): None. IMPRESSION: IMPRESSION: Osteoporosis by WHO criteria. The [facility] Department of Internal Medicine recommendsusing National Osteoporosis Foundation (NOF) guidelines in treatment decisions related toosteoporosis. NOF guidelines suggest considering treatment for postmenopausal women and menaged 50 or older presenting with the following: History of hip or vertebral fracture. T-score = -2.5 (DXA) at the femoral neck, total hip, or spine, afterappropriate evaluation to exclude secondary causes. Low bone mass (T-score between -1.0 and -2.5 at the femoral neck or spine)AND a 10-year probability of a hip fracture = 3% OR a 10-year probability of a majorosteoporosis-related fracture = 20% based on the [place]-adapted WHO algorithm Please note that all treatment decisions require clinical judgment andconsideration of individual patient factors, including patient preferences, co- morbidities,previous drug use, risk factors not captured in the FRAX model (e.g., frailty, falls, vitaminD deficiency, increased bone turnover, interval significant decline in bone density) andpossible under- or over-estimation of fracture risk by FRAX. Optional alternative screening schedule based on joanna Coughlin., [facility] for patients with osteopenia (based on hip BMD T-score) is as follows: * advanced osteopenia (T scores -2.00 to -2.49), BMD testing every year * moderate osteopenia (T scores -1.50 to -1.99), BMD testing every 5years mild osteopenia or normal BMD (T scores -1.50 and higher), BMD testingevery 15 years Denny LOVING IMRaegan DXA PROCEDURES Final Re sult from Last 3 Months or Most Recently Relevant to Health Maintenance Insurance [employer] Advance Directives Documents on File Type Date Recorded Patient Family Centered Specialist Expl anation Health Care Decision (hx) 08/03/2013 AD STOUT DIRECTIVE Health Care Decision (hx) 08/03/2013 AD STOUT DIRECTIVE Health Care Decision (hx) 08/03/2013 AD STOUT DIRECTIVE Health Care Decision (hx) 08/03/2013 AD STOUT DIRECTIVE Health Care Decision (hx) 08/03/2013 AD STOUT DIRECTIVE Health Care Decision (hx) 08/03/2013 AD STOUT DIRECTIVE Health Care Decision (hx) 08/03/2013 AD STOUT DIRECTIVE Health Care Decision (hx) 08/03/2013 AD STOUT DIRECTIVE Health Care Decision (hx) 08/03/2013 AD STOUT DIRECTIVE Health Care Decision (hx) 08/03/2013 AD STOUT DIRECTIVE Health Care Decision (hx) 08/03/2013 AD STOUT DIRECTIVE Health Care Decision (hx) 08/03/2013 AD STOUT DIRECTIVE Health Care Decision (hx) 08/03/2013 AD STOUT DIRECTIVE Health Care Decision (hx) 08/03/2013 AD STOUT DIRECTIVE Health Care Decision (hx) 08/03/2013 AD STOUT DIRECTIVE Health Care Decision (hx) 08/03/2013 AD STOUT DIRECTIVE Health Care Decision (hx) 08/03/2013 AD STOUT DIRECTIVE Health Care Decision (hx) 08/03/2013 AD STOUT DIRECTIVE Health Care Decision (hx) 08/03/2013 AD STOUT DIRECTIVE Health Care Decision (hx) 08/03/2013 AD STOUT DIRECTIVE Health Care Decision (hx) 06/28/2013 AD TSOUT DIRECTIVE Health Care Decision (hx) 06/28/2013 AD STOUT DIRECTIVE Health Care Decision (hx) 06/28/2013 AD STOUT DIRECTIVE Health Care Decision (hx) 06/28/2013 AD STOUT DIRECTIVE Health Care Decision (hx) 06/28/2013 AD STOUT DIRECTIVE Health Care Decision (hx) 06/28/2013 AD STOUT DIRECTIVE Health Care Decision (hx) 06/28/2013 AD STOUT DIRECTIVE Health Care Decision (hx) 06/28/2013 AD STOUT DIRECTIVE Health Care Decision (hx) 06/28/2013 AD STOUT DIRECTIVE Health Care Decision (hx) 06/28/2013 AD STOUT DIRECTIVE Health Care Decision (hx) 06/28/2013 AD STOUT DIRECTIVE Health Care Decision (hx) 06/28/2013 AD STOUT DIRECTIVE Health Care Decision (hx) 06/28/2013 AD STOUT DIRECTIVE Health Care Decision (hx) 06/28/2013 AD STOUT DIRECTIVE Health Care Decision (hx) 06/28/2013 AD STOUT DIRECTIVE Health Care Decision (hx) 06/28/2013 AD STOUT DIRECTIVE Health Care Decision (hx) 06/28/2013 AD STOUT DIRECTIVE Health Care Decision (hx) 06/28/2013 AD STOUT DIRECTIVE Health Care Decision (hx) 06/28/2013 AD STOUT DIRECTIVE Health Care Decision (hx) 06/28/2013 AD STOUT DIRECTIVE Care Teams Player Manager Relationship Specialty Start Date End Date Brianda Millan MD [address] [place] [phone] PCP - General Internal Medicine 05/22/24
--- OUTSIDE RECORDS SUMMARY | 2025-05-03 08:57 | XMS_ITS | Clinical Summary ---
Author Organization [facility] Address [address] [place] [address] Care Team Providers Care Vp Integrity Name Role Phone Brianda Millan MD Primary Care Provider [phone] Allergies Active Allergy Reactions Criticality Noted Date Comments Nsaids Other (See Comments) Medium 04/27/2021 GI bleeding Metoclopramide Other (See Comments) Medium 04/27/2021 GI upset Medications Medication Sig Dispensed Refills Start Date End Date Status promethazine (PHENERGAN) 12.5 MG tablet Take 12.5 mg by mouth 3 (three) times a day. 0 Active omeprazole (PriLOSEC) 20 MG capsule Take 40 mg by mouth 2 (two) times a day. 0 Active hydroCHLOROthiazide (HYDRODIURIL) tablet 12.5 mg Take 12.5 mg by mouth daily. 0 Active losartan (COZAAR) tablet 50 mg Take 50 mg by mouth daily. 0 Active DULoxetine (CYMBALTA) DR capsule 60 mg Take 60 mg by mouth daily. 0 Active gabapentin (NEURONTIN) 100 MG capsule Take 100 mg by mouth daily. 0 Active ergocalciferol (VITAMIN D2) capsule 90242 units Take 50,000 Units by mouth once a week. 0 Active alendronate (FOSAMAX) tablet 70 mg Take 70 mg by mouth every 7 days. Take with water on empty stomach/Nothing by mouth and do not lie down for next 30 minutes 0 Active vitamin C (ASCORBIC ACID) 250 MG tablet Take 250 mg by mouth 2 (two) times a day. 0 Active multiple vitamin (M.V.I. Adult) injection Inject into the vein. 0 Active vitamin B-12 (CYANOCOBALAMIN) 500 MCG tablet Take 1,000 mcg by mouth 2 (two) times a day. 0 Active vitamin D3 (VITAMIN D3) 25 MCG (1000 UT) tablet Take 1,000 Units by mouth daily. 0 Active Pediatric Multiple Vitamins (Multi-Delyn) LIQD liquid Take 5 mL by mouth daily. 0 Active tiZANidine (ZANAFLEX) 2 MG tablet Take 1 tablet (2 mg total) by mouth 3 (three) times a day as needed (muscle spasms). 90 tablet 0 05/08/2021 Active Family History Medical History Relation Name Comments Heart disease Father Lung disease Father Cancer Mother ovarian Relation Name Status Comments Father Mother Social History Tobacco Use Types Packs/Day Years Used Date Smoking Tobacco: Former Cigarettes Q uit: 04/27/1971 Smokeless Tobacco: Never Sex and Gender Information Value Date Recorded Sex Assigned at Not on file Gender Identity Not on file Sexual Orientation Not on file Job Start Date Occupation Industry Not on file Not on file Not on file Last Filed Vital Signs Vital Sign Reading Time Taken Comments Blood Pressure - - Pulse 73 04/27/2021 2:01 PM EDT Temperature 36.4 C (97.6 F) 04/27/2021 2:01 PM EDT Respiratory Rate - - Oxygen Saturation 96% 04/27/2021 2:01 PM EDT Inhaled Oxygen Concentration - - Weight 78 kg (172 lb) 04/27/2021 2:01 PM EDT Height 149.9 cm (4' 11 ) 04/27/2021 2:01 PM EDT Body Mass Index 34.74 04/27/2021 2:01 PM EDT Plan of Treatment Health Maintenance Due Date Last Done Comments Hepatitis C Screening 1945 Depression Screening 1959 Preventative Health Evaluation 1965 DTap / Tdap / Td (1 - Tdap) 1966 Shingrix-Zoster Vaccine (1 of 2) 1997 Fall Risk Assessment 2012 Osteoporosis Screening (DEXA Scan) 2012 Pneumococcal Vaccine (2 of 2 - PPSV23 or PCV20) 04/30/2018 04/30/2017 RSV Adult > 60+ Yrs or (1 - 1-dose 75+ series) 2022 COVID-19 Vaccine (3 - 2024- season) 2025 11/03/2020, 10/13/2020 Influenza Vaccine (#1) 2025 , 06/11/2019, 04/30/2017, Additional history exists Hepatitis B Vaccines Aged Out No long er eligible based on patient's age to complete this topic RSV Ped < 20 months Aged Out No longe r eligible based on patient's age to complete this topic Care Teams Vp Integrity Relationship Specialty Start Date End Date Brianda Millan MD [address] [phone] PCP - General Internal Medicine 05/01/21
--- OUTSIDE RECORDS SUMMARY | 2025-05-03 08:57 | XMS_ITS | Encounter Summary ---
Author Organization [facility] Address [address] [place] [id number] Care Team Providers Care Luster Repairer Name Role Phone Brianda Millan MD Primary Care Provider [phone] Reason for Referral * Consultation (Routine) - Authorized Specialty Diagnoses / Procedures Referred By Contact Referred To Contact Podiatry / Orthopaedic Surgery Diagnoses Pain in both feet Brianda Millan MD Phone: tel: fax: Jake Reis DPM [address] [address] Phone: tel: fax: Referral ID Status Reason Start Date Expiration Date Visits Requested Visits Authorized [id number] Authorized Specialty Services Required 03/31/2025 03/31/2026 12 12 Encounter Details Date Type Department Care Team ([facility] st Contact Info) Description 03/29/2025 Telephone Internal Medicine - [place] [address] [address] Brianda Millan MD 175 [facility] [address] [place] [address] Social History Tobacco Use Types [...] AM EDT documented as of this encounter Progress Notes * Nanda Hummel MA - 03/31/2025 10:01 AM EDT Faxed to [phone] * Brianda Millan MD - 03/30/2025 10:51 PM EDT Referral signed * Nanda Hummel MA - 03/29/2025 12:57 PM EDT Pended Ref. * Carmencita Mcnulty - 03/29/2025 11:58 AM EDT Referral Request: What insurance does the patient have today? [facility] Referrals cannot be processed if the insurance is not accurate. If the insurance listed above in red is NO BILLING INFORMATION FOUND FOR THIS ENCOUTNER The patients correct insurance must be obtained and registered in [facility] or their referral can not be processed. Is this a retro request? no. If yes for what date of service do you need the retro referral? not applicable Who is calling to request this referral? spouse If the caller is not the patient, what is their name? not applicable Ask the patient WHO referred them to this specialty: Patient saw Dr. Millan at [facility] for the problem and was told if symptoms did not resolve or worsen they would refer them to this specialty FIRST and LAST NAME of SPECIALIST PATIENT is seeing: Dr. Cristian Jeffery What specialty is this? Podiatry DIAGNOSIS Patient is being seen for (Not a body part or a procedure): foot care Have you seen this SPECIALIST for this PROBLEM/DX before? If YES, when? 2024 Have you checked REVIEW or the APPT DESK to see if this referral has 2 been done or has visits left? yes Is this visit: Follow Up Address of Specialist: [address] [facility] Phone # of Specialist: [phone] Fax #: (if applicable): N/A Does patient have an appointment scheduled?: yes Date of appointment- (including a retro-request): Jun 20, 2025 Is this appointment related to: follow up documented in this encounter Plan of Treatment Upcoming Encounters Date Type Department Care Team (Late st Contact Info) Description 06/16/2025 8:45 AM EST Consult Orthopedic Surgery - [place] [address] [phone] Jake Reis DPM [address] [address] 07/29/2025 8:15 AM EST Office Visit Internal Medicine - [place] [address] [phone] Brianda Millan MD [address] [phone] 04/07/2026 3:45 PM EDT Office Visit Pulmonology - [place] [address] [phone] Marek Galdamez MD [address] [address] Scheduled Referrals Name Type Priority Associated Diagnoses Order Schedule Ambulatory referral to Podiatry Outpatient Referral Routine Pain in both feet 1 Occurrences starting 03/30/2025 until 03/29/2026 documented as of this encounter Goals Goal Patient Goal Type Associated Problems Recent Progress Patient-Stated? Author LTGs General Yes Saira Morris, PT Note: [facility] Goals increase bilateral hip flexion, extension, and [...] as of this encounter Visit Diagnoses Diagnosis Pain in both feet- Primary documented in this encounter Additional Health Concerns Assessment Noted Time PHQ-9 Depression Total Score: 2 09/21/19 25 9:06 AM EST A fall risk assessment has been complete d for the patient 09/21/2024 9:03 AM EST documented as of this encounter Care Teams Luster Repairer Relationship Specialty Start Date End Date Brianda Millan MD [address] [place] [phone] PCP - General Internal Medicine 05/22/24 documented as of this encounter
--- OUTSIDE RECORDS SUMMARY | 2025-05-03 08:58 | XMS_ITS ---
Author Name [facility] Organization Unknown Encounters Encounter Type Encounter Reason Primary Diagnosis Location Date Ambulatory [facility] 05/07/2024 Care Team Organization Name Specialty Phone Email Start Date End Da te [facility] ACO 03/16/2025 [facility] [address] [facility] Primary Care 06/04/2022 03/15/20 24
--- OUTSIDE RECORDS SUMMARY | 2025-05-03 08:58 | XMS_ITS | Patient Health Record ---
Author Organization [facility] Judah mary carmen Sosa Address [address] [place] [address] Care Team Providers Care Administrative Services Officer Name Role Phone Monty RIVERA, [facility] Primary Care Provider Unavailab Cristian Muñiz Unavailable [phone] Allergies Allergen (clinical drug ingredient) Drug/Non Drug Allergy documented on EMR Reaction Allergy Type Onset Date Status metoclopramide Reglan Unknown Drug Allergy Ac tive Non-steroidal anti-inflammatory agent (FN) NSAIDs ceballos holes in stomach Drug Allergy Active Reason For Referral No Information Medications Medication SIG (Take, Route, Frequency, Duration) Notes Start Date End Date Status Gabapentin 100 MG 1 capsule Orally 04/21/2014 Active DULoxetine HCl Activ e Primidone 25mg once a day Active Omeprazole 20 MG 1 tablet Orally Once a day 04/21/2014 Active Multivitamin Active Losartan Potassium A ctive Warfarin Sodium 5 MG Oral; Duration: 90 1mg, 2mg , & 5mg Not-Taking Ferrous Sulfate 324 (65 Fe) MG Orally every other day Not-Taking Acidophilus Not-Taki ng Ondansetron HCl 4 MG 1 tablet Orally Once a day Not-Taking traMADol HCl 50 MG Oral; Duration: 30 Not-Taking Vitamin D3 Active Pepto-Bismol 262 MG 2 tablets as needed Orally 8 time(s) a day Not-Taking Vitamin B12 500 Orally Once a day Active Rizatriptan Benzoate 10 MG TAKE 1 TABLET BY MOUTH ONCE, MAY REPEAT AT 2 HOUR INTERVALS (DO NOT EXCEED 3 TABLETS/24 HOURS) Oral; Duration: 30 Days Active Promethazine HCl 12.5 MG TAKE 1 TABLET B Y MOUTH EVERY SIX HOURS NEEDED Oral; Duration: 30 Active hydrOXYzine HCl 25 MG/ML Orally once a day 25mg & 10 mg Not-Taking Cymbalta Not-Taking Sucralfate Not-Takin g Senna Lax 8.6 MG Orally Not -Taking zzzCompression Stockings 20-30mm Hg . . .; Duration: . Active Vitamin D2 Active Vitamin C 500 MG 1 tablet Orally Once a day Active Ammonium Lactate 12 % 1 application Externally to affected areas of dry skin to feet except for between the toes Twice a day; Duration: 30 days Active Hydrocortisone Valerate 0.2 % 1 application to affected area Externally twice a day Not-Taking Calcium 1200+D3 Not- Taking traZODone HCl Not-Ta jodi hydroCHLOROthiazide Not-Taking Alendronate Sodium A ctive Albuterol Active ProAir HFA 1-2 puffs as needed every 6 hrs Not-Taking Zostavax 46205 UNT/0.65ML Subcutaneous 04/21/2014 Not-Taking Advair Diskus 250-50 MCG/DOSE Inhalation Active Stool Softener/Laxative Not-Taking Acetaminophen Active Vicodin twice a day Not-Taki ng Aspercreme 10 % Externally PRN Act sukhi Immunizations Vaccine Route Administration Date Status Comme nts Influenza Unknown 06/08/2019 Administered Influenza Unknown 03/28/2024 Administered COVID-19 Pfizer BioNTech Vaccine Unknown 10/09/2020 Adm inistered Social History Tobacco Use: Social History Observation Description Date Details (start date - stop date) Never Smoker NA - NA Tobacco use other than smoking: Question Answer Notes Are you an other tobacco user? No Tobacco Control (Standard) Question Answer Notes Tobacco use: Nonsmoker Additional Findings: Tobacco non-user Current no nsmoker AUDIT-C (Standard) Question Answer Notes Did you have a drink containing alcohol in the p ast year? No Points 0 Interpretation Negative Problems Problem Type SNOMED Code ICD Code Onset Dates Problem Status W/U Status Risk Notes Problem Bilateral atherosclerosis of arteries of lower limbs (disorder) ([id number] ) Atherosclerosis of [place] artery of both lower extremities, with unspecified presence of clinical manifestation (I70.203) Active confirmed Vital Signs Heart Rate 70 /min 12/02/2024 Blood pressure diastolic 75 mm Hg 03/03/2025 Height 5ft 1in in 03/03/2025 Blood pressure systolic 123 mm Hg 03/03/2025 Weight 98 lbs 03/03/2025 BMI 18.51 kg/m2 03/03/2025 Procedures Procedure Date Ordered Date Performed Result Body Sit e 07802-QPDFYWX NAIL, 6 OR MORE 06/10/2024 N/A 43186-Fdszgzqz Plate 06/10/2024 N/A 61336-Qmtohvzv Plate Each Additional 06/10/2024 N/A 49936-HFEN SKIN LESIONS, OVER 4 06/10/2024 N/A 47785-CYBBXJK NAIL, 6 OR MORE 09/09/2024 N/A 93415-ZLAE SKIN LESIONS, OVER 4 09/09/2024 N/A 49911-WAOSHWT NAIL, 6 OR MORE 12/02/2024 N/A 29326-JTXN SKIN LESIONS, OVER 4 12/02/2024 N/A 87721-OTKKKQA NAIL, 6 OR MORE 03/03/2025 N/A 66743-Yyidrdas Plate 03/03/2025 N/A 54347-SVUX SKIN LESIONS, OVER 4 03/03/2025 N/A Encounters Encounter Location Date Provider Diagnosis [address] [address] 06/10/2024 Cristian Jeffery Atherosclerosis of [place] artery of both lower extremities, with unspecified presence of clinical manifestation I70.203 ; Tinea unguium B35.1 ; Pain in right toe(s) M79.674 ; Pain in left toe(s) M79.675 and Ingrown nail L60.[address] [address] 09/09/2024 Cristian Jeffery Atherosclerosis of [place] artery of both lower extremities, with unspecified presence of clinical manifestation I70.203 ; Tinea unguium B35.1 ; Pain in right toe(s) M79.674 ; Pain in left toe(s) M79.675 and Xerosis of skin L85.[address] [address] 12/02/2024 Cristian Troyunier Atherosclerosis of [place] artery of both lower extremities, with unspecified presence of clinical manifestation I70.203 ; Tinea unguium B35.1 ; Pain in right toe(s) M79.674 ; Pain in left toe(s) M79.675 and Xerosis of skin L85.3 [facility] [address] [facility] [address] [place] [address] 03/03/2025 Cristian Jeffery Atherosclerosis of [place] artery of both lower extremities, with unspecified presence of clinical manifestation I70.203 ; Tinea unguium B35.1 ; Pain in right toe(s) M79.674 ; Pain in left toe(s) M79.675 and Ingrown nail L60.0 Assessments Encounter Date Diagnosis (ICD Code) Assessment Notes Treatment Notes Treatment Clinical Notes Section Notes 09/09/2024 Tinea unguium (ICD-10 - B35.1) 09/09/2024 Atherosclerosis of [place] artery of both lower extremities, with unspecified presence of clinical manifestation (ICD-10 - I70.203) 12/02/2024 Tinea unguium (ICD-10 - B35.1) 12/02/2024 Atherosclerosis of [place] artery of both lower extremities, with unspecified presence of clinical manifestation (ICD-10 - I70.203) 03/03/2025 Tinea unguium (ICD-10 - B35.1) 03/03/2025 Atherosclerosis of [place] artery of both lower extremities, with unspecified presence of clinical manifestation (ICD-10 - I70.203) 06/10/2024 Tinea unguium (ICD-10 - B35.1) 06/10/2024 Atherosclerosis of [place] artery of both lower extremities, with unspecified presence of clinical manifestation (ICD-10 - I70.203) 06/10/2024 Pain in right toe(s) (ICD-10 - M79.674) 03/03/2025 Pain in right toe(s) (ICD-10 - M79.674) 12/02/2024 Pain in right toe(s) (ICD-10 - M79.674) 09/09/2024 Pain in right toe(s) (ICD-10 - M79.674) 09/09/2024 Pain in left toe(s) (ICD-10 - M79.675) 12/02/2024 Pain in left toe(s) (ICD-10 - M79.675) 03/03/2025 Pain in left toe(s) (ICD-10 - M79.675) 06/10/2024 Pain in left toe(s) (ICD-10 - M79.675) 06/10/2024 Ingrown nail (ICD-10 - L60.0) 03/03/2025 Ingrown nail (ICD-10 - L60.0) 12/02/2024 Xerosis of skin (ICD-10 - L85.3) 09/09/2024 Xerosis of skin (ICD-10 - L85.3) Plan Of Treatment Pending Test Test Name Order Date 46025-ZQMQGPU NAIL, 6 OR MORE 05/16/2014 05043-LHGPMRI NAIL, 6 OR MORE 08/29/2014 46626-ZEVPFLI NAIL, 6 OR MORE 08/28/2015 14908-JTUCJNS NAIL, 6 OR MORE 02/27/2015 37937-TTIGYWX NAIL, 6 OR MORE 11/20/2015 56460-VWGWNDN NAIL, 6 OR MORE 05/22/2016 82094-KKMTTXZ NAIL, 6 OR MORE 11/20/2016 06975-NHNTDBU NAIL, 6 OR MORE 03/13/2017 39820-JCVFKSN NAIL, 6 OR MORE 06/12/2017 84176-KTIINQY NAIL, 6 OR MORE 09/17/2018 90467-BVXWBGH NAIL, 6 OR MORE 11/19/2018 52883-JYSSDUX NAIL, 6 OR MORE 04/29/2019 18035-QCRTORW NAIL, 6 OR MORE 07/15/2019 26847-GTZCEKF NAIL, 6 OR MORE 09/23/2019 39907-UGYEIUC NAIL, 6 OR MORE 12/23/2019 56316-HWQYKUW NAIL, 6 OR MORE 03/20/2020 41273-NGCGXQR NAIL, 6 OR MORE 05/25/2020 29322-ZTFDLIP NAIL, 6 OR MORE 08/10/2020 88526-SLUNCXN NAIL, 6 OR MORE 10/23/2020 05065-SFSBYUX NAIL, 6 OR MORE 03/12/2021 93126-EQOOSZA NAIL, 6 OR MORE 2021 60564-UPVXVIE NAIL, 6 OR MORE 09/10/2021 64230-AEJUAAP NAIL, 6 OR MORE 11/19/2021 65281-TKQQUEF NAIL, 6 OR MORE 01/21/2022 24958-TFXPGYF NAIL, 6 OR MORE 04/11/2022 60608-UPJWNFY NAIL, 6 OR MORE 07/11/2022 14172-DYOCYWC NAIL, 6 OR MORE 10/10/2022 18763-CAOJDMF NAIL, 6 OR MORE 03/10/2023 34104-WCPVBFC NAIL, 6 OR MORE 07/31/2023 05614-NIFCWKU NAIL, 6 OR MORE 10/13/2023 79915-JGJRJPA NAIL, 6 OR MORE 03/11/2024 06308-LLZSMDM NAIL, 6 OR MORE 09/09/2024 11415-DXHSWMP NAIL, 6 OR MORE 12/02/2024 94373-TGINTEZ NAIL, 6 OR MORE 03/03/2025 61306-BJOJSDC NAIL, 6 OR MORE 01/01/2021 50579-MUKBHKO NAIL, 6 OR MORE 02/18/2019 49756-QPUXWHS NAIL, 6 OR MORE 06/29/2018 31298-XILWWVL NAIL, 6 OR MORE 04/27/2018 97077-FPIHTZA NAIL, 6 OR MORE 01/22/2018 84430-TEEJOWY NAIL, 6 OR MORE 08/21/2016 43033-LNZDAXB NAIL, 6 OR MORE 02/21/2016 54155-VAVIDEZ NAIL, 6 OR MORE 05/29/2015 66482-LWVAUST NAIL, 6 OR MORE 11/28/2014 79687-GLKGJRA NAIL, 6 OR MORE 06/10/2024 30665-UFVLDOO NAIL, 6 OR MORE 05/22/2023 79550-PWJVQLM NAIL, 6 OR MORE 12/30/2022 59796-Abupqzsd Plate 12/30/2022 39812-Ifsrqawy Plate 05/22/2023 63971-Iwtfenez Plate 01/22/2018 64624-Emtmkjrz Plate 06/10/2024 98385-Tdafvemo Plate 11/28/2014 75455-Zggdhaeu Plate 04/27/2018 17571-Ldwyxjsh Plate 05/29/2015 38197-Aharcxnj Plate 02/21/2016 00050-Kceqihyo Plate 08/21/2016 65700-Eocitrtp Plate 06/29/2018 02383-Zmatxqaq Plate 03/03/2025 28505-Xfljeqfe Plate 02/18/2019 89109-Zrkztcsn Plate 01/01/2021 47046-Cenxwnjt Plate 06/12/2017 04616-Mxlznbnw Plate 03/11/2024 78408-Nzswcypn Plate 10/13/2023 35225-Mjessuid Plate 07/31/2023 67930-Dqykfqll Plate 03/10/2023 41071-Wueuqtoa Plate 10/10/2022 96887-Uwsselgb Plate 07/11/2022 77650-Cqbvdrwg Plate 04/11/2022 32333-Nnfvjqhl Plate 01/21/2022 68895-Ptsvmqex Plate 11/19/2021 41638-Spyzcgxk Plate 09/10/2021 54812-Kokgvjtp Plate 2021 13296-Zoppmiyv Plate 03/12/2021 27304-Hymyixta Plate 10/23/2020 63506-Ptiwgokp Plate 08/10/2020 04920-Yslcnale Plate 05/25/2020 90771-Dbcjzegl Plate 03/20/2020 16790-Cxlnvjfs Plate 12/23/2019 12029-Mhnwnniu Plate 09/23/2019 63447-Pocsxdne Plate 07/15/2019 98154-Nrbdvkjh Plate 04/29/2019 90514-Jqucmoib Plate 11/19/2018 80759-Muuudeyp Plate 09/17/2018 55712-Myppjphl Plate 03/13/2017 39151-Fyrounus Plate 11/20/2016 43576-Ayxvythg Plate 05/22/2016 07903-Zmcuasyh Plate 11/20/2015 99975-Mxdnqajo Plate 02/27/2015 57616-Qhpxfkux Plate 08/28/2015 73688-Rgnsxsge Plate 08/29/2014 77817-Qwjxstcr Plate 05/16/2014 72092-Qyvwnazh Plate Each Additional 37363-Excnjebn Plate Each Additional 08/2014 88782-Kdcqhjir Plate Each Additional 07/2015 94041-Hysxnkiq Plate Each Additional 34757-Jptxcoor Plate Each Additional 61897-Qggszmzi Plate Each Additional 21766-Nlsordxr Plate Each Additional 11947-Jqmhrgls Plate Each Additional 09/2018 96729-Ekwrakgq Plate Each Additional 52796-Nxrhikxp Plate Each Additional 13205-Aoozxkfl Plate Each Additional 35262-Idwyaowd Plate Each Additional 52949-Vqepzwbx Plate Each Additional 77060-Vxoxrbsn Plate Each Additional 48134-Sllbctte Plate Each Additional 95775-Gcaxxhre Plate Each Additional 50432-Urmdafqo Plate Each Additional 36402-Rsarewgs Plate Each Additional 24415-Jcpdrvnb Plate Each Additional 97447-Ofxtlvau Plate Each Additional 97830-Blbsgbqn Plate Each Additional 26652-Gokmbikk Plate Each Additional 12027-Gqxkywpm Plate Each Additional 38885-Jzwggpbc Plate Each Additional 38684-Cfdbcybo Plate Each Additional 10/2023 11618-Nmsxdyas Plate Each Additional 71803-Stiaacda Plate Each Additional 78192-Jljrlcxd Plate Each Additional 28747-Lzmhwkif Plate Each Additional 01/2021 45479-Fhbhhtsx Plate Each Additional 91684-Akvilfyf Plate Each Additional 09/2017 47033-Agcpvuwa Plate Each Additional 07/2017 55416-Vkqxfirn Plate Each Additional 73487-Yghrbpdl Plate Each Additional 81280-Orjfegsp Plate Each Additional 08/2014 84352-Otjerclq Plate Each Additional 25804-Reuhhcls Plate Each Additional 26525-Qqxydknk Plate Each Additional 81233-Loxggwxa Plate Each Additional 11/2022 04995-XRHP SKIN LESIONS, OVER 4 12/31/19 23 71883-JIGJ SKIN LESIONS, OVER 4 05/22/20 23 06186-FTRW SKIN LESIONS, OVER 4 06/10/20 24 00545-WZCA SKIN LESIONS, OVER 4 02/19/20 19 01960-GTPN SKIN LESIONS, OVER 4 01/02/20 21 26719-HQMF SKIN LESIONS, OVER 4 03/03/20 25 48653-ACAP SKIN LESIONS, OVER 4 12/03/19 25 61319-VFES SKIN LESIONS, OVER 4 09/09/19 25 99232-UVAP SKIN LESIONS, OVER 4 03/11/20 24 69778-VHKN SKIN LESIONS, OVER 4 10/13/19 24 25116-TZAW SKIN LESIONS, OVER 4 07/31/19 64506-WHSU SKIN LESIONS, OVER 4 03/10/20 26364-VTFN SKIN LESIONS, OVER 4 10/11/19 45300-TIDT SKIN LESIONS, OVER 4 07/11/20 93922-MNQU SKIN LESIONS, OVER 4 04/11/20 23677-AJDP SKIN LESIONS, OVER 4 01/22/20 95177-EFQZ SKIN LESIONS, OVER 4 11/20/19 87502-YQGP SKIN LESIONS, OVER 4 09/10/19 45164-PIQF SKIN LESIONS, OVER 4 05/21/20 73411-WKYF SKIN LESIONS, OVER 4 03/12/20 19523-YINM SKIN LESIONS, OVER 4 10/24/19 25957-UGYV SKIN LESIONS, OVER 4 08/10/19 77468-LKAB SKIN LESIONS, OVER 4 05/25/20 96031-UCDN SKIN LESIONS, OVER 4 03/20/20 63927-OOYG SKIN LESIONS, OVER 4 12/23/19 44032-PQOX SKIN LESIONS, OVER 4 09/23/19 18084-MJMD SKIN LESIONS, OVER 4 07/15/20 19 28395-OBUM SKIN LESIONS, OVER 4 04/29/20 11089-VXOY SKIN LESIONS, OVER 4 11/20/19 19 51650-KGFL SKIN LESIONS, 2 TO 4 06/12/20 74931-CDSP SKIN LESIONS, 2 TO 4 09/17/19 19 77773-OASH SKIN LESIONS, 2 TO 4 11/21/19 17 70180-ZOUJ SKIN LESIONS, 2 TO 4 03/13/20 17 72968-TCFD SKIN LESIONS, 2 TO 4 05/22/20 16 87823-HEZE SKIN LESIONS, 2 TO 4 08/28/19 16 21039-ZNED SKIN LESIONS, 2 TO 4 02/28/20 15 30468-DSOT SKIN LESIONS, 2 TO 4 11/20/19 16 16543-ZTNU SKIN LESIONS, 2 TO 4 08/29/19 15 72790-PPTW SKIN LESIONS, 2 TO 4 05/16/20 14 45906-MSOJ SKIN LESIONS, 2 TO 4 06/29/20 18 86548-TNQC SKIN LESIONS, 2 TO 4 04/27/20 18 35253-BVSN SKIN LESIONS, 2 TO 4 08/21/19 17 36735-KNIG SKIN LESIONS, 2 TO 4 01/23/20 18 55601-LJTX SKIN LESIONS, 2 TO 4 11/29/19 15 65955-XDTT SKIN LESIONS, 2 TO 4 05/29/20 15 96929-BMGB SKIN LESIONS, 2 TO 4 02/21/20 16 Next Appt Details Provider Name:Cristian Jeffery , 06/20/2025 03:15:00 PM, [address], [place], [address], Insurance Providers Payer Name Payer Address Payer Phone Subscriber Number Group Number Insured Name Patient Relationship to Insured Coverage Start Date Coverage End Date [employer] Preferred [address] [place] [address] [id number] Pili Wylie Self - patient is the insured Medical (General) History Medical History History ICD Code Anemia Ataxia Back,Hip,and Knee pain Benign familiar tremor Benign Leiomyoma of the large intestine Benign Tubular Adenoma of the large inte frank Chronic obstructive pulmonary disease (C OPD) Eczema Emphysema Gastroinestional bleeding Gastroparesis Herpes Zoster Hiatal hernia Insomnia Involuntary Shaking or trembling occurs with movement Obesity, morbid osteoarthritis Pulmonary embolism Reflux Rotator Cuff tendonitis Shoulder pain Supraventricular tachycardia Ventral Hernia Vitamin B12 deficiency ASO/PVD Surgical History Surgery Date(Month/Year) back surgery 02/07/20 cataract surgery 05/21/18, 06/11/18 colectomy, partial 05/19/2017 History of Esophagect Part D ist 2/3, Thoracotomy, Thor Esophgogastrostomy History of Laparoscopy Repair of Hernia tubal ligation Hospitalization History Reason Date(Month/Year) [facility] for fall, then retirement 01/29/2024 [facility]- fell, stitches on head, minor con cussion 08/2023 [facility] Nodules removed from the back 02/06 [facility] Fell and broke wrist 09/02/2017 [facility] - Partial Colectomy 05/19/17 Colonoscopy 11/13/2016 [facility] - small hernia repair, cleaning up of scar tissue, blocked bowel 02/05/16 [facility]- Throwing up blood -overnight stay 11/24/2015 [facility] - complication after having surger y 02/23/15
== END 2025-05-03 09:08 | disposition home or self-care (01) ==
PROVIDERS: PCP Internal Medicine; Referring Provider Internal Medicine; Visit Provider Registered Nurse
DX: G43.909 Migraine, unspecified, not intractable, without status migrainosus (principal); R27.0 Ataxia, unspecified; G25.0 Essential tremor
CPT/HCPCS: 99214

== ENCOUNTER → 2025-05-03 08:27 | Outpatient (BNVA) | payer MEDICARE, SELFPAY | PROVIDERS: PCP Internal Medicine; Referring Provider Internal Medicine; Visit Provider Registered Nurse | DX: G25.0 Essential tremor (principal); G43.909 Migraine, unspecified, not intractable, without status migrainosus; R27.0 Ataxia, unspecified | CPT/HCPCS: 99212 ==